=== PATIENT | female | born 1965 | race Caucasian/White ===

== ENCOUNTER 2023-02-04 04:25 | Day surgery (SDC) | payer OTHER ==
[2023-01-30 13:54] VITALS: BMI 18.8
[~2023-02-04 04:25] MED LIST: IOHEXOL 300 MG/ML INFUS..BTL IV ONE; ceFAZolin SODIUM 1 GM VIAL IVPB ONE
[2023-02-04] MEDS ORDERED: ACETAMINOPHEN 1000 MG/100 ML BAG IVPB ONE (10:48)
[2023-02-04] MEDS ORDERED: DEXTROSE 5%-0.45% SALINE 1,000 ML IV SCH (11:00)
[2023-02-04] MEDS ORDERED: ceFAZolin SODIUM 1 GM VIAL IVPB ONE (11:15)
[2023-02-04] MEDS ORDERED: IOHEXOL 300 MG/ML INFUS..BTL IV ONE (11:27)
[2023-02-04] MEDS ORDERED: LACTATED RINGERS SOLUTION 1,000 ML IV SCH (13:00)
[2023-02-04 14:07] VITALS: RESP 18
[2023-02-04 15:40] VITALS: BP 114/60; PULSE 50; TEMP 97.1
== END 2023-02-04 15:40 | disposition home or self-care (01) ==
LOC: JASU-SURG 04:25
PROVIDERS: ATTEND Urology
PROC: 0T778DZ Dilation of Left Ureter with Intraluminal Device, Via Natural or Artificial Opening Endoscopic (ICD-10-PCS; 2023-02-04)
PROC: 0TP580Z Removal of Drainage Device from Kidney, Via Natural or Artificial Opening Endoscopic (ICD-10-PCS; 2023-02-04)
PROC: 0TC78ZZ Extirpation of Matter from Left Ureter, Via Natural or Artificial Opening Endoscopic (ICD-10-PCS; principal; 2023-02-04 11:00)
DX: N20.1 Calculus of ureter (principal)
CPT/HCPCS: 76000-TC-FY; 81025; 94760; C2617